=== PATIENT | male | born 1945 | race Caucasian/White ===

== ENCOUNTER 2024-12-27 11:10 | Day surgery (SDC) | payer MEDICARE, SELFPAY ==
[2024-12-27] VITALS (14 sets, daily range): BP systolic 111–158; BP diastolic 65–100; PULSE 64–81; RESP 11–21; TEMP 36.2–36.8; O2SAT 92–98; BMI 28.5
[2024-12-27] MEDS: SODIUM CHLORIDE 0.9% 500 ML 500 ML 20 ML IV (12:20)
[2024-12-27] MEDS: BENZOCAINE 20% (Hurricaine) SPRAY 1 DOSE TOP ×2 (12:23)
[2024-12-27] MEDS: DiphenhydrAMINE INJ 50 MG/ML VIAL 25 MG IVP (12:24)
[2024-12-27] MEDS: fentaNYL CIT INJ 50 mCg/ML AMP 2ML (ASD USE ONLY) IVP (12:40)
[2024-12-27] MEDS: MIDAZOLAM INJ 1 MG/ML VIAL 2 ML (ASD USE ONLY) 2 MG IVP (12:44)
== END 2024-12-27 13:45 | disposition home or self-care (01) ==
PROVIDERS: PCP Family Medicine; Referring Provider Specialist; Visit Provider Specialist
PROC: 0DBE8ZX Excision of Large Intestine, Via Natural or Artificial Opening Endoscopic, Diagnostic (ICD-10-PCS; CPT 45380; principal; 2024-12-27 11:00)
PROC: (CPT 43239; 2024-12-27 11:00)
DX: Z12.11 Encounter for screening for malignant neoplasm of colon (principal); K64.9 Unspecified hemorrhoids; K57.00 Diverticulitis of small intestine with perforation and abscess without bleeding; I25.10 Atherosclerotic heart disease of native coronary artery without angina pectoris; Z95.1 Presence of aortocoronary bypass graft; E78.5 Hyperlipidemia, unspecified; Z79.02 Long term (current) use of antithrombotics/antiplatelets; N40.0 Benign prostatic hyperplasia without lower urinary tract symptoms; Z79.899 Other long term (current) drug therapy
CPT/HCPCS: G0105; J1200; J2250; J3010; J7040; A9270